=== PATIENT | male | born 1995 | race Caucasian/White ===

== ENCOUNTER 2021-08-23 20:58 | Emergency (ER) | payer OTHER ==
[2021-08-23 21:26] VITALS: BP 110/73; PULSE 70; RESP 18; TEMP 98.7
[2021-08-23] MEDS ORDERED: LIDOCAINE 1% INJ 10MG/ML (20 ML MDV) SQ ONE (21:53)
[2021-08-23] MEDS ORDERED: BACITRACIN OINT 1 EACH PACKET TOPICAL ONE (21:53)
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
== END 2021-08-23 22:26 | disposition home or self-care (01) ==
LOC: EC 20:58
DX: S01.81XA Laceration without foreign body of other part of head, initial encounter (principal); Z88.0 Allergy status to penicillin; Z88.1 Allergy status to other antibiotic agents; Y04.2XXA Assault by strike against or bumped into by another person, initial encounter
CPT/HCPCS: 99283; 12011; J2001

== ENCOUNTER 2022-09-05 10:45 | Emergency (ER) | payer OTHER ==
[2022-09-05 11:00] VITALS: BP 133/84; PULSE 112; RESP 20; TEMP 98.8
[2022-09-05] MEDS ORDERED: SODIUM CHLORIDE 0.9% 1,000 ML IV STA ×2 (11:46)
--- NOTE | 2022-09-05 11:54 | ED ---
General Adult HPI - General Chief complaint: Recheck/Abnormal Lab/Rx Stated complaint: mental health Time Seen by Provider: 09/05/22 11:39 Source: patient Mode of arrival: ambulatory Limitations: no limitations - History of Present Illness Initial comments: This 27-year-old male presents with complaint of methamphetamine abuse. He states that he has been doing this intermittently for 6 years. He states that he was clean for a year as he was in [facility]. He utilizes methamphetamines intravenously. He states that when he does them he will get significant muscle twitching throughout his body as well as testicular pain. He states that he would like information in regards to rehabilitation. He also relates that approximately one week ago he was seen at [facility] for similar. At that time his muscle breakdown enzymes were elevated and he states that he required fluid hydration for rhabdomyolysis. He relates that he has had the p ain in his scrotum as well as his muscle twitching chronically with his intravenous drug use. He does relate some urinary hesitancy at times which occurs more so when he was utilizing methamphetamines. He denies any other complaints or modifying factors. - Related Data Allergies Allergy/AdvReac Type Severity Reaction Status Date / Time dexamethasone [From Decadron] Allergy Unknown Verified 09/05/22 11:00 dexamethasone sod phosphate Allergy Unknown Verified 09/05/22 11:00 [From Decadron] ketorolac tromethamine Allergy Anaphylaxis Verified 09/05/22 11:00 [From Toradol] Penicillins Allergy Anaphylaxis Verified 09/05/22 11:00 Review of Systems ROS Statement: Those systems with pertinent positive or pertinent negative responses have been documented in the HPI. ROS Other: All systems not noted in ROS Statement are negative. Past Medical History Past Medical History: No Reported History History of Any Multi-Drug Resistant Organisms: None Reported Past Surgical History: No Surgical Hx Reported Past Psychological History: ADD/ADHD Smoking Status: Current every day smoker Past Alcohol Use History: None Reported Past Drug Use History: Methamphetamine General Exam - General Exam Comments Initial Comments: GENERAL: The patient is well nourished and well hydrated. VITAL SIGNS: Heart rate, blood pressure, respiratory rate reviewed as recorded in nurse's notes. EYES: Pupils are round and reactive. Extraocular movements are intact. No conjunctival / lid redness or swelling. ENT: No external evidence of injury, swelling, or ecchymosis. Airway is patent. Throat is clear. NECK: Nontender. No swelling or evidence of injury. No subcutaneous emphysema. Trachea is midline. No thyroid mass. HEART: Regular rate and rhythm. Good peripheral pulses. LUNGS/CHEST: Breath sounds clear and equal bilaterally. No rales, rhonchi, or wheezes. No ecchymosis, subcutaneous emphysema, or tenderness. ABDOMEN: Abdomen soft without tenderness. No palpable masses or organomegaly. No peritoneal signs. No abdominal wall swelling or ecchymosis. Genitourinary: There is no significant tenderness or swelling into the scrotum or testicles. There is mild tenderness in the pubic region superiorly. No evidence of hernia. EXTREMITIES: No extremity tenderness. Normal muscle tone and function. No thoracolumbar tenderness. NEUROLOGIC: Sensation is grossly intact. Cranial nerve exam reveals face is symmetrical, tongue is midline, speech is clear. SKIN: No abrasions or ecchymosis is noted. No induration or masses noted. PSYCHIATRIC: Alert and oriented. Appropriate behavior and judgment. Limitations: no limitations Course Vital Signs 09/05/22 10:58 Temperature 98.8 F Pulse Rate 112 H Respiratory 20 Rate Blood Pressure 133/84 O2 Sat by Pulse 99 Oximetry Medical Decision Making - Medical Decision Making The patient was seen and examined. IV is initiated patient is hydrated. The laboratory came back all essentially within normal limits except for a moderately high CPK. He is given 2 L of IV fluids. It is felt as though he is stable for discharge. He is counseled extensively regarding drug abuse. He does understand that we are not a rehab facility. He is given a list of rehabilitation centers in our area. He is highly encouraged to stop utilizing the methamphetamines and follow-up with rehabilitation. Oral fluids are also encouraged. Return parameters are discussed. - Lab Data Result diagrams: 09/05/22 12:19 09/05/22 12:19 Lab Results 09/05/22 09/05/22 09/05/22 Range/Units 12:19 12:19 12:19 WBC 11.1 H (3.8-10.6) k/uL RBC 5.10 (4.30-5.90) m/uL Hgb 16.0 (13.0-17.5) gm/dL Hct 47.1 (39.0-53.0) % MCV 92.3 (80.0-100.0) fL MCH 31.3 (25.0-35.0) pg MCHC 33.9 (31.0-37.0) g/dL RDW 12.2 (11.5-15.5) % Plt Count 317 (150-450) k/uL MPV 7.1 Neutrophils % 67 % Lymphocytes % 24 % Monocytes % 6 % Eosinophils % 1 % Basophils % 0 % Neutrophils # 7.5 (1.3-7.7) k/uL Lymphocytes # 2.7 (1.0-4.8) k/uL Monocytes # 0.7 (0-1.0) k/uL Eosinophils # 0.1 (0-0.7) k/uL Basophils # 0.0 (0-0.2) k/uL Sodium 139 (137-145) mmol/L Potassium 4.0 (3.5-5.1) mmol/L Chloride 99 (98-107) mmol/L Carbon Dioxide 23 (22-30) mmol/L Anion Gap 17 mmol/L BUN 14 (9-20) mg/dL Creatinine 1.00 (0.66-1.25) mg/dL Est GFR (CKD-EPI)AfAm >90 (>60 ml/min/1.73 sqM) Est GFR (CKD-EPI)NonAf >90 (>60 ml/min/1.73 sqM) Glucose 112 H (74-99) mg/dL Calcium 9.3 (8.4-10.2) mg/dL Total Bilirubin 0.8 (0.2-1.3) mg/dL AST 50 (17-59) U/L ALT 39 (4-49) U/L Alkaline Phosphatase 80 (38-126) U/L Creatine Kinase 1104 H* (55-170) U/L Total Protein 8.0 (6.3-8.2) g/dL Albumin 5.3 H (3.5-5.0) g/dL Urine Color Yellow Urine Appearance Cloudy (Clear) Urine pH 6.0 (5.0-8.0) Ur Specific [place] 1.034 (1.001-1.035) Urine Protein 1+ H (Negative) Urine Glucose (UA) Negative (Negative) Urine Ketones 1+ H (Negative) Urine Blood Negative (Negative) Urine Nitrite Negative (Negative) Urine Bilirubin Negative (Negative) Urine Urobilinogen <2.0 (<2.0) mg/dL Ur Leukocyte Esterase Negative (Negative) Urine RBC 6 H (0-5) /hpf Urine WBC 6 H (0-5) /hpf Amorphous Sediment Occasional H (None) /hpf Urine Bacteria Occasional H (None) /hpf Urine Mucus Many H (None) /hpf Disposition Clinical Impression: Methamphetamine abuse, Elevated CPK Disposition: HOME SELF-CARE Condition: Good Instructions (If sedation given, give patient instructions): Methamphetamine Abuse (ED) Additional Instructions: Please follow-up with the rehabilitation centers as discussed. Is patient prescribed a controlled substance at d/c from ED?: No Referrals: None,Stated [Primary Care Provider] - 1-2 days Time of Disposition: 14:10
[2022-09-05 12:46] LABS: Basophils % (A) 0 %; Eosinophils # (A) 0.1 k/uL (0-0.7); Eosinophils % (A) 1 %; HCT 47.1 % (39.0-53.0); Lymphocytes # (A) 2.7 k/uL (1.0-4.8); Lymphocytes % (A) 24 %; MCH 31.3 pg (25.0-35.0); MCHC 33.9 g/dL (31.0-37.0); MCV 92.3 fL (80.0-100.0); Mean Platelet Volume 7.1; Monocytes # (A) 0.7 k/uL (0-1.0); Monocytes % (A) 6 %; Neutrophils # (A) 7.5 k/uL (1.3-7.7); Neutrophils % (A) 67 %; Platelet Count 317 k/uL (150-450); RDW 12.2 % (11.5-15.5); WBC 11.1 k/uL (3.8-10.6)
[2022-09-05 13:01] LABS: ALT 39 U/L (4-49); AST 50 U/L (17-59); African American GFR (CKD) >90 (>60 ml/min/1.73 sqM); Albumin 5.3 g/dL (3.5-5.0); Alkaline Phosphatase 80 U/L (38-126); Anion Gap 17 mmol/L; Blood Urea Nitrogen 14 mg/dL (9-20); Calcium 9.3 mg/dL (8.4-10.2); Carbon Dioxide 23 mmol/L (22-30); Chloride 99 mmol/L (98-107); Glucose 112 mg/dL (74-99); Non-African American GFR(CKD) >90 (>60 ml/min/1.73 sqM); Sodium 139 mmol/L (137-145); Total Bilirubin 0.8 mg/dL (0.2-1.3)
[2022-09-05 13:10] LABS: Creatine Kinase 1104 U/L (55-170)
[2022-09-05 13:31] LABS: Amorphous Sediment,Urine Occasional /hpf; Appearance,Urine Cloudy (Clear); Bacteria,Urine Occasional /hpf; Bilirubin,Urine Negative (Negative); Blood,Urine Negative (Negative); Color,Urine Yellow; Glucose,Urine (UA) Negative (Negative); Ketones,Urine 1+ (Negative); Leukocyte Esterase,Urine Negative (Negative); Mucus,Urine Many /hpf; Nitrite,Urine Negative (Negative); Protein,Urine 1+ (Negative); RBC,Urine 6 /hpf (0-5); Specific Gravity,Urine 1.034 (1.001-1.035); Urobilinogen,Urine <2.0 mg/dL (<2.0); WBC,Urine 6 /hpf (0-5)
--- NOTE | 2022-09-05 14:19 | ED ---
Medical Decision Making - Lab Data Result diagrams: 09/05/22 12:19 09/05/22 12:19 Lab Results 09/05/22 09/05/22 09/05/22 Range/Units 12:19 12:19 12:19 WBC 11.1 H (3.8-10.6) k/uL RBC 5.10 (4.30-5.90) m/uL Hgb 16.0 (13.0-17.5) gm/dL Hct 47.1 (39.0-53.0) % MCV 92.3 (80.0-100.0) fL MCH 31.3 (25.0-35.0) pg MCHC 33.9 (31.0-37.0) g/dL RDW 12.2 (11.5-15.5) % Plt Count 317 (150-450) k/uL MPV 7.1 Neutrophils % 67 % Lymphocytes % 24 % Monocytes % 6 % Eosinophils % 1 % Basophils % 0 % Neutrophils # 7.5 (1.3-7.7) k/uL Lymphocytes # 2.7 (1.0-4.8) k/uL Monocytes # 0.7 (0-1.0) k/uL Eosinophils # 0.1 (0-0.7) k/uL Basophils # 0.0 (0-0.2) k/uL Sodium 139 (137-145) mmol/L Potassium 4.0 (3.5-5.1) mmol/L Chloride 99 (98-107) mmol/L Carbon Dioxide 23 (22-30) mmol/L Anion Gap 17 mmol/L BUN 14 (9-20) mg/dL Creatinine 1.00 (0.66-1.25) mg/dL Est GFR (CKD-EPI)AfAm >90 (>60 ml/min/1.73 sqM) Est GFR (CKD-EPI)NonAf >90 (>60 ml/min/1.73 sqM) Glucose 112 H (74-99) mg/dL Calcium 9.3 (8.4-10.2) mg/dL Total Bilirubin 0.8 (0.2-1.3) mg/dL AST 50 (17-59) U/L ALT 39 (4-49) U/L Alkaline Phosphatase 80 (38-126) U/L Creatine Kinase 1104 H* (55-170) U/L Total Protein 8.0 (6.3-8.2) g/dL Albumin 5.3 H (3.5-5.0) g/dL Urine Color Yellow Urine Appearance Cloudy (Clear) Urine pH 6.0 (5.0-8.0) Ur Specific [place] 1.034 (1.001-1.035) Urine Protein 1+ H (Negative) Urine Glucose (UA) Negative (Negative) Urine Ketones 1+ H (Negative) Urine Blood Negative (Negative) Urine Nitrite Negative (Negative) Urine Bilirubin Negative (Negative) Urine Urobilinogen <2.0 (<2.0) mg/dL Ur Leukocyte Esterase Negative (Negative) Urine RBC 6 H (0-5) /hpf Urine WBC 6 H (0-5) /hpf Amorphous Sediment Occasional H (None) /hpf Urine Bacteria Occasional H (None) /hpf Urine Mucus Many H (None) /hpf Disposition Clinical Impression: Methamphetamine abuse, Elevated CPK Disposition: HOME SELF-CARE Condition: Good Instructions (If sedation given, give patient instructions): Methamphetamine Abuse (ED) Additional Instructions: Please follow-up with the rehabilitation centers as discussed. Prescriptions: Acetaminophen [Tylenol Extra Strength] 1,000 mg PO Q6H PRN #30 tablet PRN Reason: Pain Is patient prescribed a controlled substance at d/c from ED?: No Referrals: None,Stated [Primary Care Provider] - 1-2 days Time of Disposition: 14:17
== END 2022-09-05 15:01 | disposition home or self-care (01) ==
LOC: EC 10:45
DX: F15.10 Other stimulant abuse, uncomplicated (principal); R74.8 Abnormal levels of other serum enzymes; F17.200 Nicotine dependence, unspecified, uncomplicated
CPT/HCPCS: 36415; 80053; 81001; 82550; 85025; 96360; 96361; 99284

== ENCOUNTER 2022-09-06 00:54 | Emergency (ER) | payer OTHER ==
[2022-09-06 01:09] VITALS: BP 150/65; TEMP 98.7
[2022-09-06] MEDS ORDERED: SODIUM CHLORIDE 0.9% 1,000 ML IV STA (01:38)
[2022-09-06] MEDS ORDERED: MAG HYDROX/AL HYDROX/SIMETH 30 ML, HYOSCYAMINE ELIXIR 10 ML, LIDOCAINE VISCOUS 2% 10 ML PO STA ×3 (01:39)
--- NOTE | 2022-09-06 01:55 | XR ---
EXAMINATION TYPE: XR chest 2V DATE OF EXAM: 09/06/2022 COMPARISON: NONE HISTORY: Pain TECHNIQUE: 2 views FINDINGS: Heart and mediastinum are normal. Lungs are clear. Diaphragm is normal. Bony thorax is inta ct. IMPRESSION: Normal chest.
[2022-09-06 03:01] LABS: ALT 34 U/L (4-49); AST 40 U/L (17-59); African American GFR (CKD) >90 (>60 ml/min/1.73 sqM); Albumin 4.5 g/dL (3.5-5.0); Alkaline Phosphatase 68 U/L (38-126); Anion Gap 11 mmol/L; Appearance,Urine Clear (Clear); Bilirubin,Urine Negative (Negative); Blood Urea Nitrogen 10 mg/dL (9-20); Blood,Urine Negative (Negative); Calcium 9.1 mg/dL (8.4-10.2); Carbon Dioxide 25 mmol/L (22-30); Chloride 101 mmol/L (98-107); Color,Urine Colorless; Creatine Kinase 730 U/L (55-170); Glucose 95 mg/dL (74-99); Glucose,Urine (UA) Negative (Negative); Ketones,Urine Negative (Negative); Leukocyte Esterase,Urine Negative (Negative); Magnesium 2.2 mg/dL (1.6-2.3); Nitrite,Urine Negative (Negative); Non-African American GFR(CKD) >90 (>60 ml/min/1.73 sqM); PH, Urine 6.5 (5.0-8.0); Protein,Urine Negative (Negative); Sodium 137 mmol/L (137-145); Specific Gravity,Urine 1.006 (1.001-1.035); Total Bilirubin 0.6 mg/dL (0.2-1.3); Total Protein 6.8 g/dL (6.3-8.2); Urobilinogen,Urine <2.0 mg/dL (<2.0)
[2022-09-06 03:14] LABS: Prothrombin Time 11.3 sec (9.0-12.0)
[2022-09-06 03:15] LABS: Basophils % (A) 0 %; Eosinophils # (A) 0.1 k/uL (0-0.7); Eosinophils % (A) 1 %; HCT 42.1 % (39.0-53.0); HGB 14.7 gm/dL (13.0-17.5); Lymphocytes # (A) 2.6 k/uL (1.0-4.8); Lymphocytes % (A) 26 %; MCH 31.6 pg (25.0-35.0); MCV 90.3 fL (80.0-100.0); Mean Platelet Volume 8.7; Monocytes # (A) 0.5 k/uL (0-1.0); Monocytes % (A) 5 %; Neutrophils # (A) 6.8 k/uL (1.3-7.7); Neutrophils % (A) 67 %; RBC 4.66 m/uL (4.30-5.90); RDW 12.5 % (11.5-15.5); WBC 10.1 k/uL (3.8-10.6)
[2022-09-06 03:16] LABS: Platelet Count 158 k/uL (150-450)
[2022-09-06 03:19] LABS: Partial Thromboplastin Time 21.3 sec (22.0-30.0)
--- NOTE | 2022-09-06 03:36 | ED ---
General Adult HPI - General Chief complaint: Chest Pain Stated complaint: Chest Pain Time Seen by Provider: 09/06/22 01:14 Source: EMS, RN notes reviewed Mode of arrival: EMS Limitations: no limitations - History of Present Illness Initial comments: 27-year-old male presents to the emergency Department with complaints of epigastric pain, onset this evening. Patient states this discomfort began when he laid down to go to bed today. Reports it was accompanied by an episode of heavy breathing, though was not short of breath or having difficulty breathing. Patient states he was not feeling anxious at the time. Does report daily methamphetamine use, however is trying to quit. Reports similar episode earlier in the day. Denies headache, dizziness, palpitations, shortness of breath, abdominal pain, nausea, vomiting, diarrhea, or dysuria. - Related Data Previous Rx's Medication Instructions Recorded Acetaminophen [Tylenol Extra 1,000 mg PO Q6H PRN #30 tablet 09/05/22 Strength] Allergies Allergy/AdvReac Type Severity Reaction Status Date / Time dexamethasone [From Decadron] Allergy Unknown Verified 09/06/22 01:06 dexamethasone sod phosphate Allergy Unknown Verified 09/06/22 01:06 [From Decadron] ketorolac tromethamine Allergy Anaphylaxis Verified 09/06/22 01:06 [From Toradol] Penicillins Allergy Anaphylaxis Verified 09/06/22 01:06 Review of Systems ROS Statement: Those systems with pertinent positive or pertinent negative responses have been documented in the HPI. ROS Other: All systems not noted in ROS Statement are negative. Past Medical History Past Medical History: No Reported History History of Any Multi-Drug Resistant Organisms: None Reported Past Surgical History: No Surgical Hx Reported Past Psychological History: ADD/ADHD Smoking Status: Current every day smoker Past Alcohol Use History: None Reported Past Drug Use History: Methamphetamine General Exam Limitations: no limitations (Well-developed, well-nourished male in no acute distress. Initial temperature 98.7, pulse 80, respirations 15, blood pressure 1 50/65, pulse ox 98% on room air.) General appearance: alert, in no apparent distress Head exam: Present: atraumatic, normocephalic, normal inspection ENT exam: Present: normal exam, normal oropharynx, mucous membranes moist Respiratory exam: Present: normal lung sounds bilaterally. Absent: respiratory distress, wheezes, rales, rhonchi, stridor Cardiovascular Exam: Present: regular rate, normal rhythm, normal heart sounds. Absent: systolic murmur, diastolic murmur, rubs, gallop, clicks GI/Abdominal exam: Present: soft, tenderness (Epigastric tenderness upon palpation), normal bowel sounds. Absent: distended, guarding, rebound, rigid Neurological exam: Present: alert, oriented X3, CN II-XII intact, normal gait Psychiatric exam: Present: flat affect Course Vital Signs 09/06/22 01:06 Temperature 98.7 F Pulse Rate 88 Respiratory 15 Rate Blood Pressure 150/65 O2 Sat by Pulse 98 Oximetry - Reevaluation(s) Reevaluation #1: 09/06/22 03:10 Upon reassessment, patient reports feeling improved after GI cocktail. Denies any pain, discomfort, nausea, or vomiting. Laboratory studies studies are pending. Will continue to monitor. Medical Decision Making - Medical Decision Making This is a 27-year-old male with a past medical history of methamphetamine abuse who presents to the emergency department for evaluation and treatment of epigastric pain. Upon exam, patient is well-appearing and in no acute distress. Physical exam findings are unremarkable with the exception of mild epigastric tenderness upon palpation. EKG shows sinus rhythm with no ectopy or ST segment changes. Laboratory studies are unremarkable with the exception of an elevated CK which is improved from previous visit. Chest x-ray is unremarkable. Patient was given a GI cocktail and IV fluids with improvement. He will be discharged home to follow up with his PCP for a recheck. Implored to seek treatment for drug addiction. Return parameters discussed in detail. Patient verbalizes understanding and agrees with this plan. Attending: Keisha. - Lab Data Result diagrams: 09/06/22 02:12 09/06/22 02:12 Lab Results 09/06/22 09/06/22 09/06/22 Range/Units 02:12 02:12 02:12 WBC 10.1 (3.8-10.6) k/uL RBC 4.66 (4.30-5.90) m/uL Hgb 14.7 (13.0-17.5) gm/dL Hct 42.1 (39.0-53.0) % MCV 90.3 (80.0-100.0) fL MCH 31.6 (25.0-35.0) pg MCHC 35.0 (31.0-37.0) g/dL RDW 12.5 (11.5-15.5) % Plt Count 158 D (150-450) k/uL MPV 8.7 Neutrophils % 67 % Lymphocytes % 26 % Monocytes % 5 % Eosinophils % 1 % Basophils % 0 % Neutrophils # 6.8 (1.3-7.7) k/uL Lymphocytes # 2.6 (1.0-4.8) k/uL Monocytes # 0.5 (0-1.0) k/uL Eosinophils # 0.1 (0-0.7) k/uL Basophils # 0.0 (0-0.2) k/uL PT 11.3 (9.0-12.0) sec INR 1.0 (<1.2) APTT 21.3 L (22.0-30.0) sec Sodium 137 (137-145) mmol/L Potassium 4.0 (3.5-5.1) mmol/L Chloride 101 (98-107) mmol/L Carbon Dioxide 25 (22-30) mmol/L Anion Gap 11 mmol/L BUN 10 (9-20) mg/dL Creatinine 0.84 (0.66-1.25) mg/dL Est GFR (CKD-EPI)AfAm >90 (>60 ml/min/1.73 sqM) Est GFR (CKD-EPI)NonAf >90 (>60 ml/min/1.73 sqM) Glucose 95 (74-99) mg/dL Calcium 9.1 (8.4-10.2) mg/dL Magnesium 2.2 (1.6-2.3) mg/dL Total Bilirubin 0.6 (0.2-1.3) mg/dL AST 40 (17-59) U/L ALT 34 (4-49) U/L Alkaline Phosphatase 68 (38-126) U/L Creatine Kinase 730 H (55-170) U/L Troponin I (0.000-0.034) ng/mL Total Protein 6.8 (6.3-8.2) g/dL Albumin 4.5 (3.5-5.0) g/dL Urine Color Urine Appearance (Clear) Urine pH (5.0-8.0) Ur Specific [place] (1.001-1.035) Urine Protein (Negative) Urine Glucose (UA) (Negative) Urine Ketones (Negative) Urine Blood (Negative) Urine Nitrite (Negative) Urine Bilirubin (Negative) Urine Urobilinogen (<2.0) mg/dL Ur Leukocyte Esterase (Negative) 09/06/22 09/06/22 Range/Units 02:12 02:12 WBC (3.8-10.6) k/uL RBC (4.30-5.90) m/uL Hgb (13.0-17.5) gm/dL Hct (39.0-53.0) % MCV (80.0-100.0) fL MCH (25.0-35.0) pg MCHC (31.0-37.0) g/dL RDW (11.5-15.5) % Plt Count (150-450) k/uL MPV Neutrophils % % Lymphocytes % % Monocytes % % Eosinophils % % Basophils % % Neutrophils # (1.3-7.7) k/uL Lymphocytes # (1.0-4.8) k/uL Monocytes # (0-1.0) k/uL Eosinophils # (0-0.7) k/uL Basophils # (0-0.2) k/uL PT (9.0-12.0) sec INR (<1.2) APTT (22.0-30.0) sec Sodium (137-145) mmol/L Potassium (3.5-5.1) mmol/L Chloride (98-107) mmol/L Carbon Dioxide (22-30) mmol/L Anion Gap mmol/L BUN (9-20) mg/dL Creatinine (0.66-1.25) mg/dL Est GFR (CKD-EPI)AfAm (>60 ml/min/1.73 sqM) Est GFR (CKD-EPI)NonAf (>60 ml/min/1.73 sqM) Glucose (74-99) mg/dL Calcium (8.4-10.2) mg/dL Magnesium (1.6-2.3) mg/dL Total Bilirubin (0.2-1.3) mg/dL AST (17-59) U/L ALT (4-49) U/L Alkaline Phosphatase (38-126) U/L Creatine Kinase (55-170) U/L Troponin I <0.012 (0.000-0.034) ng/mL Total Protein (6.3-8.2) g/dL Albumin (3.5-5.0) g/dL Urine Color Colorless Urine Appearance Clear (Clear) Urine pH 6.5 (5.0-8.0) Ur Specific [place] 1.006 (1.001-1.035) Urine Protein Negative (Negative) Urine Glucose (UA) Negative (Negative) Urine Ketones Negative (Negative) Urine Blood Negative (Negative) Urine Nitrite Negative (Negative) Urine Bilirubin Negative (Negative) Urine Urobilinogen <2.0 (<2.0) mg/dL Ur Leukocyte Esterase Negative (Negative) - EKG Data EKG shows normal: sinus rhythm Rate: normal EKG Comments: EKG obtained at 12:59 AM shows sinus rhythm with sinus arrhythmia. Ventricular rate 83, KS interval 141, QRS duration 80, QT/QTC 349/389. Interpretation normal ECG. - Radiology Data Radiology results: report reviewed, image reviewed Two-view chest x-ray was obtained. Report was reviewed in its entirety. Impression per Dr. Li is normal chest. Disposition Clinical Impression: GERD (gastroesophageal reflux disease), Chest pain, non-cardiac Disposition: HOME SELF-CARE Condition: Stable Instructions (If sedation given, give patient instructions): Noncardiac Chest Pain (ED) Additional Instructions: Increase your intake of fluids. Avoid stimulant substances. Avoid spicy foods. Consider lifestyle changes. It is important to make every effort to cease recreational methamphetamine use. Follow-up with your PCP for recheck on Thursday. Return to the emergency department with any new, worsening or concerning symptoms. Is patient prescribed a controlled substance at d/c from ED?: No Referrals: None,Stated [Primary Care Provider] - 1-2 days Time of Disposition: 03:50
[2022-09-06 04:18] VITALS: PULSE 65; RESP 18
== END 2022-09-06 04:18 | disposition home or self-care (01) ==
LOC: EC 00:54
DX: K21.9 Gastro-esophageal reflux disease without esophagitis (principal); F17.200 Nicotine dependence, unspecified, uncomplicated; Z88.0 Allergy status to penicillin; Z88.3 Allergy status to other anti-infective agents; Z88.8 Allergy status to other drugs, medicaments and biological substances
CPT/HCPCS: 36415; 71046; 80053; 81003; 82550; 83735; 84484; 85025; 85610; 85730; 93005; 96360; 99285

== ENCOUNTER 2022-10-30 16:41 | Emergency (ER) | payer OTHER ==
[2022-10-30 16:56] VITALS: TEMP 98
[2022-10-30] MEDS ORDERED: SODIUM CHLORIDE 0.9% 1,000 ML IV STA (23:50)
[2022-10-30] MEDS ORDERED: MAG HYDROX/AL HYDROX/SIMETH 30 ML, HYOSCYAMINE ELIXIR 10 ML, LIDOCAINE VISCOUS 2% 10 ML PO STA ×3 (23:52)
--- NOTE | 2022-10-31 00:09 | ED ---
Chest Pain HPI - General Chief Complaint: Chest Pain Stated Complaint: chest pain Time Seen by Provider: 10/30/22 23:45 Source: patient, RN notes reviewed Mode of arrival: EMS Limitations: no limitations - History of Present Illness Initial Comments: This is a 27-year-old male who presents to the emergency department for chest pain. Patient is an IV drug user and used methamphetamine earlier today. Chest pain began shortly afterwards. Chest pain is described as being in the epigastric region and feels like a dull ache or pressure. Denies any pain in the arms or jaw. He does use meth almost every single day. He was evaluated here last month for chest pain that occurred following methamphetamine use and his workup was found to be negative. His symptoms improved following IV fluids and a GI cocktail. Denies any coughing or difficulty breathing with this. Denies any fevers, chills, sore throat, cough, dyspnea, palpitations, abdominal pain, nausea, vomiting, diarrhea, back pain, or headaches. MD Complaint: chest pain Pain Location: epigastric Pain Radiation: none Quality: dull - Related Data Previous Rx's Medication Instructions Recorded Acetaminophen [Tylenol Extra 1,000 mg PO Q6H PRN #30 tablet 09/05/22 Strength] Allergies Allergy/AdvReac Type Severity Reaction Status Date / Time dexamethasone [From Decadron] Allergy Unknown Verified 09/06/22 01:06 dexamethasone sod phosphate Allergy Unknown Verified 09/06/22 01:06 [From Decadron] ketorolac tromethamine Allergy Anaphylaxis Verified 09/06/22 01:06 [From Toradol] Penicillins Allergy Anaphylaxis Verified 09/06/22 01:06 Review of Systems ROS Statement: Those systems with pertinent positive or pertinent negative responses have been documented in the HPI. ROS Other: All systems not noted in ROS Statement are negative. EKG Findings - EKG Comments: EKG Findings:: Sinus rhythm. Ventricular rate 72 bpm, MN interval 150 ms, QRS duration 105 ms, QTC 406 ms. - EKG Results: EKG: interpreted by ALLAN Past Medical History Past Medical History: No Reported History History of Any Multi-Drug Resistant Organisms: None Reported Past Surgical History: No Surgical Hx Reported Past Psychological History: ADD/ADHD Smoking Status: Current every day smoker Past Alcohol Use History: None Reported Past Drug Use History: Methamphetamine General Exam Limitations: no limitations General appearance: alert, in no apparent distress Head exam: Present: atraumatic, normocephalic, normal inspection Respiratory exam: Present: normal lung sounds bilaterally, chest wall tenderness. Absent: respiratory distress, wheezes, rales, rhonchi, stridor Cardiovascular Exam: Present: regular rate, normal rhythm, normal heart sounds. Absent: systolic murmur, diastolic murmur, rubs, gallop, clicks GI/Abdominal exam: Present: soft, normal bowel sounds. Absent: distended, tenderness, guarding, rebound, rigid Neurological exam: Present: alert, oriented X3, CN II-XII intact Psychiatric exam: Present: normal affect, normal mood Skin exam: Present: warm, dry, intact, normal color. Absent: rash Course Vital Signs 10/30/22 10/31/22 10/31/22 16:53 00:19 00:23 Temperature 98 F Pulse Rate 79 73 82 Respiratory 16 18 18 Rate Blood Pressure 130/82 132/66 O2 Sat by Pulse 99 98 Oximetry 10/31/22 02:30 Temperature Pulse Rate 91 Respiratory 18 Rate Blood Pressure 112/63 O2 Sat by Pulse 98 Oximetry Chest Pain MDM - MDM This is a 27-year-old male who presents to the emergency department for chest pain. Patient's chest pain was noted to be reproducible with palpation. Lab work obtained and found to be nonactionable, including a negative troponin and negative d-dimer. There is no evidence for acute coronary syndrome at this time. He was treated with IV fluids and I ordered a GI cocktail, which improved his symptoms last time. However the patient declined the GI cocktail this time for unclear reasons. He had minor improvement with IV fluids and rest. Patient is stable for discharge home. Strongly encouraged the patient to discontinue the methamphetamine use and consider rehab for improvement in his overall health status. Return precautions reviewed in depth, the patient is instructed to return to the emergency department with any new, worsening, or concerning symptoms. Patient verbalized understanding. This case was discussed in detail with the attending ED physician. Presentation, findings, and treatment plan discussed in detail as well. Disposition Clinical Impression: Atypical chest pain Disposition: HOME SELF-CARE Instructions (If sedation given, give patient instructions): Noncardiac Chest Pain (ED) Additional Instructions: Return to the emergency department with any new, worsening, or concerning symptoms. Follow up with your primary care provider in 1-2 days. Is patient prescribed a controlled substance at d/c from ED?: No Referrals: Nonstaff,Physician [REFERRING] - 1-2 days
[2022-10-31 00:20] VITALS: RESP 18
[2022-10-31 00:24] LABS: Basophils # (A) 0.1 k/uL (0-0.2); Basophils % (A) 1 %; Eosinophils # (A) 0.1 k/uL (0-0.7); Eosinophils % (A) 1 %; HCT 46.5 % (39.0-53.0); HGB 16.4 gm/dL (13.0-17.5); Lymphocytes # (A) 2.4 k/uL (1.0-4.8); Lymphocytes % (A) 30 %; MCH 31.8 pg (25.0-35.0); MCHC 35.2 g/dL (31.0-37.0); MCV 90.3 fL (80.0-100.0); Monocytes # (A) 0.5 k/uL (0-1.0); Monocytes % (A) 7 %; Neutrophils # (A) 4.7 k/uL (1.3-7.7); Neutrophils % (A) 59 %; Platelet Count 287 k/uL (150-450); RBC 5.15 m/uL (4.30-5.90); RDW 12.2 % (11.5-15.5); WBC 8.1 k/uL (3.8-10.6)
[2022-10-31 00:43] LABS: INR 1.1 (<1.2); Partial Thromboplastin Time 23.1 sec (22.0-30.0)
[2022-10-31 01:02] LABS: ALT 29 U/L (4-49); AST 29 U/L (17-59); African American GFR (CKD) >90 (>60 ml/min/1.73 sqM); Albumin 4.8 g/dL (3.5-5.0); Alkaline Phosphatase 74 U/L (38-126); Amylase 53 U/L (30-110); Anion Gap 11 mmol/L; Blood Urea Nitrogen 9 mg/dL (9-20); Calcium 9.1 mg/dL (8.4-10.2); Carbon Dioxide 25 mmol/L (22-30); Chloride 104 mmol/L (98-107); Creatine Kinase 187 U/L (55-170); Glucose 80 mg/dL (74-99); Lipase 50 U/L (23-300); Magnesium 2.3 mg/dL (1.6-2.3); Non-African American GFR(CKD) >90 (>60 ml/min/1.73 sqM); Sodium 140 mmol/L (137-145); Total Protein 7.6 g/dL (6.3-8.2)
--- NOTE | 2022-10-31 01:12 | XR ---
EXAMINATION TYPE: XR chest 2V DATE OF EXAM: 10/31/2022 COMPARISON: 09/06/2022 HISTORY: Chest pain TECHNIQUE: 2 views FINDINGS: Heart and mediastinum are normal. Lungs are clear. Diaphragm is normal. Bony thorax is inta ct. There are chest leads. IMPRESSION: Normal chest. No change.
[2022-10-31 02:31] VITALS: BP 112/63; PULSE 91
== END 2022-10-31 02:30 | disposition home or self-care (01) ==
LOC: EC 16:41
DX: R07.89 Other chest pain (principal); F17.200 Nicotine dependence, unspecified, uncomplicated; Z88.8 Allergy status to other drugs, medicaments and biological substances; Z88.6 Allergy status to analgesic agent
CPT/HCPCS: 36415; 71046; 80053; 82150; 82550; 83690; 83735; 84484; 85025; 85379; 85610; 85730; 93005; 96360; 99285

== ENCOUNTER 2022-11-05 06:58 | Emergency (ER) | payer OTHER ==
--- NOTE | 2022-11-05 08:14 | ED ---
Recheck HPI - General Chief Complaint: Recheck/Abnormal Lab/Rx Stated Complaint: Rehab Time Seen by Provider: 11/05/22 07:58 Source: patient, RN notes reviewed Mode of arrival: ambulatory Limitations: no limitations - History of Present Illness Initial Comments: This is a 27-year-old male who presents to the emergency department for rehab placement. Patient has been using methamphetamine for the last 6 years and has never been to rehab. States that last year he was able to come off of this for approximately 2 months, however he then relapsed. He otherwise has no concerns or complaints. Denies any fevers, chills, sore throat, cough, dyspnea, chest pain, palpitations, abdominal pain, nausea, vomiting, diarrhea, back pain, or headaches. MD Complaint: other (requesting rehab information) - Related Data Previous Rx's Medication Instructions Recorded Acetaminophen [Tylenol Extra 1,000 mg PO Q6H PRN #30 tablet 09/05/22 Strength] Allergies Allergy/AdvReac Type Severity Reaction Status Date / Time dexamethasone [From Decadron] Allergy Unknown Verified 11/05/22 07:44 dexamethasone sod phosphate Allergy Unknown Verified 11/05/22 07:44 [From Decadron] ketorolac tromethamine Allergy Anaphylaxis Verified 11/05/22 07:44 [From Toradol] Penicillins Allergy Anaphylaxis Verified 11/05/22 07:44 Review of Systems ROS Statement: Those systems with pertinent positive or pertinent negative responses have been documented in the HPI. ROS Other: All systems not noted in ROS Statement are negative. Past Medical History Past Medical History: No Reported History History of Any Multi-Drug Resistant Organisms: None Reported Past Surgical History: No Surgical Hx Reported Past Psychological History: ADD/ADHD Smoking Status: Current every day smoker Past Alcohol Use History: None Reported Past Drug Use History: Methamphetamine General Exam Limitations: no limitations General appearance: alert, in no apparent distress Head exam: Present: atraumatic, normocephalic, normal inspection Respiratory exam: Present: normal lung sounds bilaterally. Absent: respiratory distress, wheezes, rales, rhonchi, stridor Cardiovascular Exam: Present: regular rate, normal rhythm, normal heart sounds. Absent: systolic murmur, diastolic murmur, rubs, gallop, clicks Neurological exam: Present: alert, oriented X3, CN II-XII intact Psychiatric exam: Present: normal affect, normal mood Skin exam: Present: warm, dry, intact, normal color. Absent: rash Course Vital Signs 11/05/22 07:43 Temperature 98.4 F Pulse Rate 66 Respiratory 20 Rate Blood Pressure 132/84 O2 Sat by Pulse 100 Oximetry Medical Decision Making - Medical Decision Making This is a 27-year-old male who presents to the emergency department for rehab placement. He requested food immediately upon arrival, which he was given. Patient was given a handout of several local rehab facilities. Instructed him to review this and contact them for inpatient management. Advised that this will be beneficial to his overall health status. Return precautions reviewed in depth, the patient is instructed to return to the emergency department with any new, worsening, or concerning symptoms. Patient verbalized understanding. This case was discussed in detail with the attending ED physician. Presentation, findings, and treatment plan discussed in detail as well. Disposition Clinical Impression: Methamphetamine abuse Disposition: HOME SELF-CARE Instructions (If sedation given, give patient instructions): Methamphetamine Abuse (ED) Additional Instructions: Return to the emergency department with any new, worsening, or concerning symptoms. Please review the rehab paperwork and contact one of the facilities for inpatient management. Following through with this will improve your overall health status. Follow up with your primary care provider in 1-2 days. Is patient prescribed a controlled substance at d/c from ED?: No Referrals: None,Stated [Primary Care Provider] - 1-2 days
[2022-11-05 09:04] VITALS: BP 128/82; PULSE 74; RESP 18; TEMP 98.5
== END 2022-11-05 09:00 | disposition home or self-care (01) ==
LOC: EC 06:58
DX: F15.10 Other stimulant abuse, uncomplicated (principal); F90.9 Attention-deficit hyperactivity disorder, unspecified type; F17.200 Nicotine dependence, unspecified, uncomplicated; Z88.8 Allergy status to other drugs, medicaments and biological substances; Z88.0 Allergy status to penicillin
CPT/HCPCS: 99283